=== PATIENT | female | born 2000 | race Hispanic/Latino ===

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

== ENCOUNTER 2023-06-24 05:50 | Emergency (ER) | payer MEDICAID ==
[~2023-06-24] VITALS: Ht 152.4 cm; Wt 74.8 kg
[~2023-06-24 05:50] MED LIST: FERR-82 PO; IBUP-2784 PO
[2023-06-24 06:14] LABS: BASOPHILS # (AUTO) 0.03 K/uL (0.00-0.20); BASOPHILS % (AUTO) 0.2 % (0.0-5.0); EOSINOPHILS # (AUTO) 0.13 K/uL (0.00-0.70); EOSINOPHILS % (AUTO) 1.1 % (0.0-8.0); HEMATOCRIT 40.8 % (36-48); IMMATURE GRANULOCYTE ABSOLUTE 0.05 K/uL (0-1); LYMPHOCYTES # (AUTO) 2.4 K/uL (1.0-4.8); LYMPHOCYTES % (AUTO) 19.9 % (21.0-51.0); MEAN CORPUSCULAR HEMOGLOBIN 27.1 pg (27.0-33.0); MEAN CORPUSCULAR HGB CONC 33.6 g/dL (32.0-36.0); MEAN CORPUSCULAR VOLUME 80.6 fL (79-99); MONOCYTES # (AUTO) 0.7 K/uL (0.1-1.0); MONOCYTES % (AUTO) 5.3 % (3.0-13.0); NEUTROPHILS % (AUTO) 73.1 % (40.0-77.0); PLATELET COUNT (AUTO) 329 K/uL (130-400); RED BLOOD CELL COUNT(AUTO) 5.06 MIL/uL (4.00-5.50); RED CELL DISTRIBUTION WIDTH 12.8 % (11.0-15.5); WHITE BLOOD COUNT (AUTO) 12.2 K/uL (4.8-10.8)
[2023-06-24 06:15] LABS: APPEARANCE,URINE CLOUDY (CLEAR); BILIRUBIN,URINE NEGATIVE (NEGATIVE); COLOR,URINE LIGHT-YELLOW (YELLOW); GLUCOSE, URINE (UA) NEGATIVE (NEGATIVE); KETONES,URINE NEGATIVE (NEGATIVE); LEUKOCYTE ESTERASE ,URINE NEGATIVE Leu/uL (NEGATIVE); NITRATE,URINE NEGATIVE (NEGATIVE); OCCULT BLOOD,URINE MODERATE (NEGATIVE); PH,URINE 6.5 (5.0-8.0); PROTEIN,URINE NEGATIVE (NEGATIVE); UROBILINOGEN,URINE 0.2 mg/dL (0.2-1.0)
[2023-06-24] MEDS: KETOROLAC 30MG VIAL (30MG/ML) IVP ONE (06:20)
[2023-06-24] MEDS: DICYCLOMINE 20MG (10MG/ML) AMP IM ONE (06:20)
[2023-06-24 06:27] LABS: HCG,QUALITATIVE URINE NEGATIVE (NEGATIVE)
[2023-06-24 06:30] LABS: BILIRUBIN,TOTAL 0.3 mg/dL (0.2-1.0); CREATININE 0.9 mg/dL (0.5-1.0); POTASSIUM 3.4 mmol/L (3.5-5.1)
[2023-06-24 06:38] LABS: ADD UA MICROSCOPIC YES; MUCUS,URINE RARE LPF (None Seen); SQUAMOUS EPITHELIAL CELL,UR MOD /HPF (0-2)
[2023-06-24] MEDS ORDERED: ONDA-104 PO (06:54)
[2023-06-24] MEDS ORDERED: DICY20TA2 PO (06:54)
[2023-06-24] MEDS ORDERED: OMEP40CA21 PO (06:54)
[2023-06-24 06:55] VITALS: BP 139/81; PULSE 98; RESP 18; O2SAT 100
== END 2023-06-24 07:02 | disposition home or self-care (01) ==
LOC: EDH 05:50
DX: K80.20 Calculus of gallbladder without cholecystitis without obstruction (principal); Z79.899 Other long term (current) drug therapy
CPT/HCPCS: 99285; 96374; 76705; 80053; 83690; 85025; 81001; 81025; 36415; 96372; J1885; J0500

== ENCOUNTER 2023-07-01 05:30 | Emergency (ER) | payer MEDICAID, OTHER ==
[~2023-07-01] VITALS: Ht 152.4 cm; Wt 74.8 kg
[~2023-07-01 05:30] MED LIST changes: +DICY20TA2 PO; +OMEP40CA21 PO; +ONDA-104 PO
[2023-07-01] MEDS: LIDOCAINE HCL 2% VISCOUS 15 ML UDCUP PO ONE (05:42)
[2023-07-01] MEDS: LACTATED RINGERS 1000ML 1,000 ML IV ONE (05:42)
[2023-07-01] MEDS: PANTOPRAZOLE 40 MG/VIAL IVP ONE (05:42)
[2023-07-01] MEDS: MAG/ALUM/SIMETH 30 ML UDCUP PO ONE (05:42)
[2023-07-01 05:56] LABS: BASOPHILS # (AUTO) 0.02 K/uL (0.00-0.20); BASOPHILS % (AUTO) 0.2 % (0.0-5.0); EOSINOPHILS # (AUTO) 0.08 K/uL (0.00-0.70); EOSINOPHILS % (AUTO) 0.7 % (0.0-8.0); HEMATOCRIT 41.3 % (36-48); IMMATURE GRANULOCYTE ABSOLUTE 0.04 K/uL (0-1); LYMPHOCYTES % (AUTO) 17.3 % (21.0-51.0); MEAN CORPUSCULAR HEMOGLOBIN 26.9 pg (27.0-33.0); MEAN CORPUSCULAR HGB CONC 32.9 g/dL (32.0-36.0); MEAN CORPUSCULAR VOLUME 81.6 fL (79-99); MONOCYTES # (AUTO) 0.7 K/uL (0.1-1.0); MONOCYTES % (AUTO) 6.3 % (3.0-13.0); NEUTROPHILS # (AUTO) 8.9 K/uL (1.8-7.7); NEUTROPHILS % (AUTO) 75.2 % (40.0-77.0); PLATELET COUNT (AUTO) 153 K/uL (130-400); RED BLOOD CELL COUNT(AUTO) 5.06 MIL/uL (4.00-5.50); WHITE BLOOD COUNT (AUTO) 11.8 K/uL (4.8-10.8)
[2023-07-01 05:56] LABS: APPEARANCE,URINE CLEAR (CLEAR); BILIRUBIN,URINE NEGATIVE (NEGATIVE); COLOR,URINE YELLOW (YELLOW); GLUCOSE, URINE (UA) NEGATIVE (NEGATIVE); KETONES,URINE 20 mg/dL (NEGATIVE); LEUKOCYTE ESTERASE ,URINE 250 Leu/uL (NEGATIVE); NITRATE,URINE NEGATIVE (NEGATIVE); PROTEIN,URINE 10 mg/dL (NEGATIVE)
[2023-07-01 06:01] LABS: HCG,QUALITATIVE URINE NEGATIVE (NEGATIVE)
[2023-07-01 06:02] LABS: ADD UA MICROSCOPIC YES
[2023-07-01 06:05] LABS: BACTERIA,URINE RARE /HPF (None Seen); MUCUS,URINE RARE LPF (None Seen); SQUAMOUS EPITHELIAL CELL,UR MOD /HPF (0-2)
[2023-07-01 06:08] LABS: ALBUMIN 3.9 g/dL (3.5-5.0); BILIRUBIN,TOTAL 0.5 mg/dL (0.2-1.0); CREATININE 0.9 mg/dL (0.5-1.0); TOTAL PROTEIN, SERUM 7.9 g/dL (6.0-8.3)
[2023-07-01 06:29] VITALS: BP 140/84; PULSE 112; RESP 20; O2SAT 100
[2023-07-01] MEDS ORDERED: PANT40TA55 PO (06:36)
[2023-07-01] MEDS ORDERED: CEPH500B PO (06:36)
== END 2023-07-01 06:58 | disposition home or self-care (01) ==
LOC: EDH 05:30
DX: N39.0 Urinary tract infection, site not specified (principal); F41.9 Anxiety disorder, unspecified; Z79.899 Other long term (current) drug therapy
CPT/HCPCS: 99285; 96374; 76705; 96361; 80053; 83690; 85025; 87088; 81001; 81025; 36415; 93005; J7120; S0164; C9113

== ENCOUNTER 2023-12-23 15:00 | Observation (INO) | payer MEDICAID ==
[~2023-12-23] VITALS: Ht 152.4 cm; Wt 64.0 kg
[~2023-12-23 15:00] MED LIST changes: +CEPH500B PO; +PANT40TA55 PO
[2023-12-23 15:02] VITALS: BP 122/84; PULSE 124; RESP 18; TEMP 98.4
[2023-12-23] MEDS ORDERED: LACTATED RINGERS 1000ML 1,000 ML IV SCH (15:30)
[2023-12-23 15:59] LABS: APPEARANCE,URINE CLEAR (CLEAR); BILIRUBIN,URINE NEGATIVE (NEGATIVE); COLOR,URINE LIGHT-YELLOW (YELLOW); GLUCOSE, URINE (UA) NEGATIVE (NEGATIVE); KETONES,URINE NEGATIVE (NEGATIVE); LEUKOCYTE ESTERASE ,URINE 75 Leu/uL (NEGATIVE); NITRATE,URINE NEGATIVE (NEGATIVE); OCCULT BLOOD,URINE NEGATIVE (NEGATIVE); PROTEIN,URINE NEGATIVE (NEGATIVE); UROBILINOGEN,URINE 0.2 mg/dL (0.2-1.0)
[2023-12-23 16:16] LABS: ADD UA MICROSCOPIC YES
[2023-12-23 16:19] LABS: BACTERIA,URINE FEW /HPF (None Seen); MUCUS,URINE RARE LPF (None Seen); RBC,URINE 0-1 /HPF (0-1); SQUAMOUS EPITHELIAL CELL,UR MOD /HPF (0-2)
== END 2023-12-23 18:55 | disposition home or self-care (01) ==
LOC: EDH 15:07 → LDH 15:08
PROVIDERS: ADMIT Obstetrics & Gynecology; ATTEND Obstetrics & Gynecology
DX: O26.852 Spotting complicating pregnancy, second trimester (principal); Z3A.23 23 weeks gestation of pregnancy; Z79.899 Other long term (current) drug therapy
CPT/HCPCS: 96372; 83033; 85460; 86900; 86901; 87086; 81001; 36415; 76805; G0378 ×4; G0379; J2791